=== PATIENT | female | born 2005 | race Caucasian/White ===

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

== ENCOUNTER 2024-06-01 10:34 | Outpatient (REF) | payer MEDICAID, SELFPAY ==
[2024-06-01 11:07] LABS: MANUAL DIFF FLAG NO
[2024-06-01 11:21] LABS: Basophils Percent Auto 0.6 % (0-2); Eosinophils Absolute Auto 0.1 X10*3/uL (0.0-0.4); Eosinophils Percent Auto 1.7 % (0-4); Hematocrit 42.4 % (37.0-47.0); Hemoglobin 13.7 g/dl (12.0-16.0); Imm Gran Abs Auto 0.03 X10*3/uL (0.00-0.03); Imm Gran Pct Auto 0.5 % (0.0-0.4); Lymphocytes Absolute Auto 1.8 X10*3/uL (1.2-4.9); Mean Corpuscular HGB Conc 32.3 g/dl (31.0-35.0); Mean Corpuscular Hemoglobin 29.3 pg (27.0-33.0); Mean Corpuscular Volume 90.6 fL (80.0-98.0); Mean Platelet Volume 11.2 fL (9.4-12.3); Monocytes Absolute Auto 0.5 X10*3/uL (0.1-1.2); Monocytes Percent Auto 7.5 % (2-11); Neutrophils Percent Auto 61.7 % (45-73); Platelet Count 329 X10*3/uL (160-400); Red Blood Count 4.68 X10*6/uL (4.20-5.50); White Blood Count 6.4 X10*3/uL (4.8-10.8)
[2024-06-01 12:39] LABS: Alanine Aminotransferase 18 U/L (0-31); Albumin Level 4.4 g/dL (3.5-5.0); Alkaline Phosphatase 82 U/L (39-117); Anion Gap 8 (12-20); Aspartate Amino Transferase 26 U/L (5-31); Bilirubin Total 0.5 mg/dL (0.0-1.0); Blood Urea Nitrogen 10 mg/dL (9-16); Calcium 9.4 mg/dL (8.4-10.2); Carbon Dioxide 26 mmol/L (22-29); Chloride 110 mmol/L (96-108); Estimated Glomerular Filt Rate > 60; Glucose Random 76 mg/dL (60-115); Potassium 3.9 mmol/L (3.3-5.1); Sodium 140 mmol/L (135-145); Total Protein 7.2 g/dL (6.5-8.0)
--- OUTSIDE RECORDS SUMMARY | 2024-06-01 12:41 | XMS_ITS | Clinical Summary ---
Author Organization [employer] [facility] ity Address [address] [place] [address] Care Team Providers Care Sign Designer Name Role Phone Unavailable Primary Care Provider Unavailabl e Social History Tobacco Use Types Packs/Day Years Used Date Smoking Tobacco: Never Assessed Comments Unknown Sex and Gender Information Value Date Recorded Sex Assigned at Not on file Legal Sex Female 8:57 PM EST Gender Identity Not on file Sexual Orientation Not on file Plan of Treatment Health Maintenance Due Date Last Done Comments Gonorrhea/Chlamydia Screening 2004 Varicella Vaccines (1 of 2 - 13+ 2-dose series) 2017 HPV Vaccines (1 - 3-dose series) 2019 Meningococcal B Vaccine (1 o f 2 - Standard) 2020 Annual Well Child Visit (3-2 1 years old) 03/21/2023 Depression Screening 03/21/2023 HIV Screening 03/21/2023 Hepatitis C Screening 03/21/2023 Social Influencers of Health Screening 03/21/2023 DTaP,Tdap,and Td Vaccines (1 - Tdap) 2023 Hepatitis B Vaccines (1 of 3 - 19+ 3-dose series) 2023 COVID-19 Vaccine ( - 2023-2 5 season) 2023 Influenza Vaccine (Season Ended) 2024 HIB Vaccines Aged Out No longer eligi ble based on patient's age to complete this topic Hepatitis A Vaccines Aged Out No long er eligible based on patient's age to complete this topic IPV Vaccines Aged Out No longer eligi ble based on patient's age to complete this topic MMR Vaccines Aged Out No longer eligi ble based on patient's age to complete this topic Meningococcal ACWY Vaccine Aged Out N o longer eligible based on patient's age to complete this topic Pneumococcal Vaccine: Pediat rics (0 to 5 Years) and At-Risk Patients (6 to 64 Years) Aged Out No longer eligible b ased on patient's age to complete this topic RSV Immunization Patients Un luis 20 months Aged Out No longer eligible b ased on patient's age to complete this topic
--- OUTSIDE RECORDS SUMMARY | 2024-06-01 12:41 | XMS_ITS | Encounter Summary ---
Author Organization [employer] Address [address] [facility] [address] [place] [address] Care Team Providers Care Labels Molder Name Role Phone Gloria Zarate MD Primary Care Provider [phone] Encounter Details Date Type Department Care Team (Latest Contact Info) Description 06/01/2024 Travel Social History Tobacco Use Types Packs/Day Years Used Date Smoking Tobacco: Never Smokeless Tobacco: Never Alcohol Use Standard Drinks/Week Comments Never 0 (1 standard drink = 0.6 oz pur e alcohol) Depression Answer Date Recorded Patient Health Questionnaire-9 Score 0 06/01/2024 Patient Health Questionnaire-9 Score 0 06/01/2024 Last PHQ-9: Questionnaire Data Not on file 0 06/01/2024 Housing Stability Answer Date Recorded What is your housing situation today? I have meena delarosa 06/01/[address] you li ve. Do you have problems with any of the following? None of the above 06/01/2024 Food Insecurity Answer Date Recorded Within the past 12 months, y ou worried that your food would run out before you got money to buy more: Never True 06/01/2024 Within the past 12 months,th e food you bought just didn't last and you didn't have enough money to get more: Never True 09/2024 Transportation Answer Date Recorded In the past 12 months, has l ack of transportation kept you from medical appts, meetings, work or from getting things needed for daily living? No 06/01/2024 Intimate Partner Violence Answer Date R ecorded Within the last year, have y ou been afraid of your partner or ex-partner? 2 06/01/2024 Within the last year, have y ou been humiliated or emotionally abused in other ways by your partner or ex-partner? 2 Within the last year, have y ou been kicked, hit, slapped, or otherwise physically hurt by your partner or ex-partner? 2 06/01/2024 Within the last year, have y ou been raped or forced to have any kind of sexual activity by your partner or ex-partner? 2 06/01/2024 Utilities Answer Date Recorded In the past 12 months, has t he electric, gas, oil or water company threatened to shut off services in your home? No 06/01/2024 Depression Answer Date Recorded Patient Health Questionnaire-2 Score 0 06/01/2024 Internet Access Answer Date Recorded Internet Access Q1 Yes 06/01/2024 Internet Access Q2 Not on file 06/01/2024 Comments Unknown Sex and Gender Information Value Date Recorded Sex Assigned at Female 06/01/2024 9:50 AM EDT Legal Sex Female 2:08 AM EST Gender Identity Female 06/01/2024 9:50 AM EDT Sexual Orientation Don't know 06/01/2024 9: 50 AM EDT documented as of this encounter Plan of Treatment Not on file documented as of this encounter Visit Diagnoses Not on filedocumented in this encounter Additional Health Concerns Assessment Noted Time PHQ-9 Depression Total Score: 0 06/02/19 25 10:02 AM EDT documented as of this encounter Care Teams Labels Molder Relationship Specialty Start Date End Date Gloria Zarate MD [address] [place] [address] PCP - General Family Medicine 06/01/24 documented as of this encounter
--- OUTSIDE RECORDS SUMMARY | 2024-06-01 12:41 | XMS_ITS | Clinical Summary ---
Author Organization [email or web address] [facility] Address [address] [facility] [address] [place] [address] Care Team Providers Care Captain Of Guards Name Role Phone Gloria Zarate MD Primary Care Provider [phone] Allergies No known active allergies Medications benzoyl peroxide (PanOxyl Foaming Wash) 10 % external washIndications :Nodular acne Apply topically 2 times daily. 148 g 3 5 06/02/19 26 Active Clindamycin Phos, Once-Daily, (Clindagel) 1 % gelIndications: Nodular acne Apply 1 Application topically at bedtime. 75 mL 3 5 Active Active Problems No known active problems Encounters Date Type Department Care Team Description 06/01/2024 9:45 AM EDT Office Visit [facility] [address] [place] [phone] Gloria Zarate MD Encounter to establish care (Primary Dx); Nodular acne 06/01/2024 Travel 05/24/2024 Patient Outreach [facility] [address] [place] [phone] Gloria Zarate MD Pre-visit Planning ((Unable to reach for PVP screening, LVM)) 05/07/2024 [address] Risk Score [facility] () Department [address] [id number] Provider, Population Health Generic from Last 3 Months Social History Tobacco Use Types Packs/Day Years Used Date Smoking Tobacco: Never Smokeless Tobacco: Never Tobacco Cessation:Counseling Given: Not Answered Alcohol Use Standard Drinks/Week Comments Never 0 [...] the past 12 months, has t he [employer], gas, oil or water company threatened to [...] Don't know 06/01/2024 9: 50 AM EDT Last Filed Vital Signs Vital Sign Reading Time Taken Comments Blood Pressure 115/64 06/01/2024 10:01 AM EDT Pulse 80 06/01/2024 10:01 AM EDT Temperature 36.3 ??C (97.4 ??F) 06/01/2024 10:01 AM E DT Respiratory Rate 18 06/01/2024 10:01 AM EDT Oxygen Saturation 99% 06/01/2024 10:01 AM EDT Inhaled Oxygen Concentration - - Weight 60.4 kg (133 lb 3.2 oz) 06/01/2024 10:01 AM EDT Height 166.5 cm (5' 5.57 ) 06/01/2024 10:01 AM E DT Body Mass Index 21.78 06/01/2024 10:01 AM EDT Plan of Treatment Health Maintenance Due Date Last Done Comments Chlamydia and Gonorrhea Screening 2004 HIV Screening 2004 Family Planning (PISQ) 2019 Hepatitis C Screening 2022 HPV Vaccines (3 - 3-dose series) 12/05/2022 09/12/2022, 03/26/2021 COVID-19 Vaccine (2023- season) 2023 Influenza Vaccine (#1) 2023 12/31/2022 Alcohol/Substance Use Screening 06/01/2025 06/01/2024 Depression Screening 06/01/2025 06/01/2024, 06/02/19 SDOH Screening 06/01/2025 06/01/2024 Tobacco Screening 06/01/2025 06/01/2024 DTaP/Tdap/Td Vaccines (8 - Td or Tdap) 07/29/2026 07/29/2016, 07/29/2016, 04/04/2008, Additional history exists Zoster Vaccines (1 of 2) 2054 RSV Patients and Patients Aged 60 years or older (1 - 1-dose 75+ series) 2079 Hepatitis B Vaccines Completed 2004, 2004, 2004 HIB Vaccines Completed 09/05/2005, 07/26, 2004 IPV Vaccines Completed 04/04/2008, 09/25, 2004, Additional history exists Hepatitis A Vaccines Completed 12/14/2012, 09/06/19 06 Meningococcal Vaccine Completed 03/26/2021, 017 Pneumococcal Vaccine: Pediatrics (0 to 5 Years) and At-Risk Patients (6 to 49) Years) Aged Out No longer eligible based on patient's age to complete this topic RSV under 20 months Aged Out No longe r eligible based on patient's age to complete this topic Rotavirus Vaccines Aged Out No longer eligible based on patient's age to complete this topic Procedures Procedure Name Priority Date/Time Associated Diagnosis Comments CBC WITH AUTO DIFFERENTIAL Routine 06/01/2024 10:37 AM EDT Encounter to establish care COMPREHENSIVE METABOLIC PANEL Routine 06/01/2024 10:37 AM EDT Encounter to establish care from Last 3 Months Results * (ABNORMAL) CBC auto differential (06/01/2024 10:37 AM EDT) White Blood Count 6.4 4.8 - 10.8 X10*3/uL [facility] Red Blood Count 4.68 4.20 - 5.50 X10*6/uL [facility] Hemoglobin 13.7 12.0 - 16.0 g/dl [facility] Hematocrit 42.4 37.0 - 47.0 % [facility] Mean Corpuscular Volume 90.6 80.0 - 98.0 fL [facility] Mean Corpuscular Hemoglobin 29.3 27.0 - 33.0 pg [facility] Mean Corpuscular HGB Conc 32.3 31.0 - 35.0 g/dl [facility] Red Cell Distribution Width 13.0 11.0 - 16.0 % [facility] Platelet Count 329 160 - 400 X10*3/uL [facility] Mean Platelet Volume 11.2 9.4 - 12.3 fL [facility] Neutrophils Percent Auto 61.7 45 - 73 % [facility] Imm Gran Pct Auto 0.5(H) 0.0 - 0.4 % [facility] Lymphocytes Percent Auto 28.0 20 - 40 % [facility] Monocytes Percent Auto 7.5 2 - 11 % [facility] Eosinophils Percent Auto 1.7 0 - 4 % [facility] Basophils Percent Auto 0.6 0 - 2 % [facility] NRBC Pct Auto 0.0 0.0 - 0.2 /100WBC [facility] Neutrophils Absolute Auto 4.0 2.0 - 8.3 x10*3/uL [facility] Imm Gran Abs Auto 0.03 0.00 - 0.03 X10*3/uL [facility] Lymphocytes Absolute Auto 1.8 1.2 - 4.9 X10*3/uL [facility] Monocytes Absolute Auto 0.5 0.1 - 1.2 X10*3/uL [facility] Eosinophils Absolute Auto 0.1 0.0 - 0.4 X10*3/uL [facility] Basophils Absolute Auto 0.0 0.0 - 0.2 X10*3/uL [facility] NRBC Abs Auto 0.000 0.0 - 0.012 X10*3/uL [facility] Blood Venous blood specimen / Unknown 06/01/2024 10:37 AM EDT 06/01/2024 11:02 AM EDT us Gloria Zarate MD LAB BLOOD ORDERABLES Final Res ult [facility] [address] [place] [address] [phone] * (ABNORMAL) Comprehensive Metabolic Panel (06/01/2024 10:37 AM EDT) Sodium 140 135 - 145 mmol/L [facility] Potassium 3.9 3.3 - 5.1 mmol/L [facility] Chloride 110(H) 96 - 108 mmol/L [facility] Carbon Dioxide 26 22 - 29 mmol/L [facility] Anion Gap 8(L) 12 - 20 [facility] Urea Nitrogen (BUN) 10 9 - 16 mg/dL [facility] Creatinine, Serum 0.73 0.5 - 1.4 mg/dL [facility] Estimated Glomerular Filt Rate >60 [facility] Comment:Chronic Kidney Disea se: Estimated GFR < 60 mL/min/[id number] Kidney Disease: Estimated GFR < 15 mL/min/1.73m2 Glucose 76 60 - 115 mg/dL [facility] Calcium 9.4 8.4 - 10.2 mg/dL [facility] Bilirubin, Total 0.5 0.0 - 1.0 mg/dL [facility] Aspartate Amino Transferase 26 5 - 31 U/L [facility] Alanine Aminotransferase 18 0 - 31 U/L [facility] Total Protein 7.2 6.5 - 8.0 g/dL [facility] Albumin Level 4.4 3.5 - 5.0 g/dL [facility] Alkaline Phosphatase 82 39 - 117 U/L [facility] Blood Venous blood specimen / Unknown 06/01/2024 10:37 AM EDT 06/01/2024 11:02 AM EDT us Gloria Zarate MD LAB BLOOD ORDERABLES Final Res ult [facility] [address] [place] [address] [phone] from Last 3 Months Insurance [facility] C3 Care Teams Captain Of Guards Relationship Specialty Start Date End Date Gloria Zarate MD [address] [place] [address] PCP - General Family Medicine 06/01/24
--- OUTSIDE RECORDS SUMMARY | 2024-06-01 12:41 | XMS_ITS | Encounter Summary ---
Author Organization [employer] Address [address] [facility] [address] [place] [address] Care Team Providers Care Territory Account Representative Name Role Phone Gloria Zarate MD Primary Care Provider [phone] Reason for Visit * Reason Comments Establish Care Encounter Details Date Type Department Care Team ([facility] st Contact Info) Description 06/01/2024 9:45 AM EDT Office Visit [facility] [address], [place] [phone] Gloria Zarate MD [address] [place], [place] [phone] Encounter to establish care (Primary Dx); Nodular acne Social History Tobacco Use Types Packs/Day Years [...] AM EDT documented as of this encounter Last Filed Vital Signs Vital Sign Reading [...] Mass Index 21.78 06/01/2024 10:01 AM EDT documented in this encounter Plan of Treatment Not on file documented as of this encounter Procedures Procedure Name Priority Date/Time Associated Diagnosis Comments CBC WITH AUTO DIFFERENTIAL Routine 06/01/2024 10:37 AM EDT Encounter to establish care COMPREHENSIVE METABOLIC PANEL Routine 06/01/2024 10:37 AM EDT Encounter to establish care documented in this encounter Results * (ABNORMAL) CBC auto differential (06/01/2024 10:37 AM EDT) Pathologist [facility] White Blood Count 6.4 4.8 - 10.8 X10*3/uL [facility] Red Blood Count 4.68 4.20 - 5.50 X10*6/uL [facility] Hemoglobin 13.7 12.0 - 16.0 g/dl [facility] Hematocrit 42.4 37.0 - 47.0 % [facility] Mean Corpuscular Volume 90.6 80.0 - 98.0 fL [facility] Mean Corpuscular Hemoglobin 29.3 27.0 - 33.0 pg [facility] Mean Corpuscular HGB Conc 32.3 31.0 - 35.0 g/dl [facility] Red Cell Distribution Width 13.0 11.0 - 16.0 % [facility] Platelet Count 329 160 - 400 X10*3/uL [facility] Mean Platelet Volume 11.2 9.4 - 12.3 fL [facility] Neutrophils Percent Auto 61.7 45 - 73 % [facility] Imm Gran Pct Auto 0.5(H) 0.0 - 0.4 % [facility] Lymphocytes Percent Auto 28.0 20 - 40 % [facility] Monocytes Percent Auto 7.5 2 - 11 % [facility] Eosinophils Percent Auto 1.7 0 - 4 % [facility] Basophils Percent Auto 0.6 0 - 2 % [facility] NRBC Pct Auto 0.0 0.0 - 0.2 /100WBC [facility] Neutrophils Absolute Auto 4.0 2.0 - 8.3 x10*3/uL [facility] Imm Gran Abs Auto 0.03 0.00 - 0.03 X10*3/uL [facility] Lymphocytes Absolute Auto 1.8 1.2 - 4.9 X10*3/uL [facility] Monocytes Absolute Auto 0.5 0.1 - 1.2 X10*3/uL [facility] Eosinophils Absolute Auto 0.1 0.0 - 0.4 X10*3/uL [facility] Basophils Absolute Auto 0.0 0.0 - 0.2 X10*3/uL [facility] NRBC Abs Auto 0.000 0.0 - 0.012 X10*3/uL [facility] Blood Venous blood specimen / Unknown 06/01/2024 10:37 AM EDT 06/01/2024 11:02 AM EDT us Gloria Zarate MD LAB BLOOD ORDERABLES Final Res ult [facility] [address] [place] [address] [phone] * (ABNORMAL) Comprehensive Metabolic Panel (06/01/2024 10:37 AM EDT) Sodium 140 135 - 145 mmol/L [facility] Potassium 3.9 3.3 - 5.1 mmol/L [facility] Chloride 110(H) 96 - 108 mmol/L [facility] Carbon Dioxide 26 22 - 29 mmol/L [facility] Anion Gap 8(L) 12 - 20 [facility] Urea Nitrogen (BUN) 10 9 - 16 mg/dL [facility] Creatinine, Serum 0.73 0.5 - 1.4 mg/dL [facility] Estimated Glomerular Filt Rate >60 [facility] Comment:Chronic Kidney Disea se: Estimated GFR < 60 mL/min/[id number] Kidney Disease: Estimated GFR < 15 mL/min/1.73m2 Glucose 76 60 - 115 mg/dL [facility] Calcium 9.4 8.4 - 10.2 mg/dL [facility] Bilirubin, Total 0.5 0.0 - 1.0 mg/dL [facility] Aspartate Amino Transferase 26 5 - 31 U/L [facility] Alanine Aminotransferase 18 0 - 31 U/L [facility] Total Protein 7.2 6.5 - 8.0 g/dL [facility] Albumin Level 4.4 3.5 - 5.0 g/dL [facility] Alkaline Phosphatase 82 39 - 117 U/L [facility] Blood Venous blood specimen / Unknown 06/01/2024 10:37 AM EDT 06/01/2024 11:02 AM EDT us Gloria Zarate MD LAB BLOOD ORDERABLES Final Res ult [facility] [address] [place] [address] [phone] documented in this encounter Visit Diagnoses Diagnosis Encounter to establish care- Primary Nodular acne documented in this encounter Additional Health Concerns Assessment Noted Time PHQ-9 Depression Total Score: 0 06/02/19 25 10:02 AM EDT documented as of this encounter Care Teams Territory Account Representative Relationship Specialty Start Date End Date Gloria Zarate MD [address] [place] [address] PCP - General Family Medicine 06/01/24 documented as of this encounter
== END 2024-06-01 10:35 | disposition home or self-care (01) ==
LOC: HO.HHCL 10:34
PROVIDERS: Visit Provider General Practice
DX: Z76.89 Persons encountering health services in other specified circumstances (principal)
CPT/HCPCS: 36415; 80053; 85025

== ENCOUNTER 2024-08-30 17:58 | Outpatient (REF) | payer MEDICAID, SELFPAY ==
--- OUTSIDE RECORDS SUMMARY | 2024-08-30 11:20 | XMS_ITS | Encounter Summary ---
Author Organization [employer] Address [address] [facility] 7[address] [place] [address] Care Team Providers Care Hotel Operation Manager Name Role Phone Gloria Zarate MD Primary Care Provider [phone] Encounter Details Date Type Department Care Team (Late st Contact Info) Description 08/30/2024 11:20 AM EDT Office Visit [facility] [address] [place], [place] [phone] Millie Luther NP [address] [place], [place] [phone] UTI symptoms (Primary Dx); Vaginal discharge Social History Tobacco Use Types Packs/Day Years [...] Sign Reading Time Taken Comments Blood Pressure 115/68 08/30/2024 11:40 AM EDT Pulse 83 08/30/2024 11:40 AM EDT Temperature 37.1 C (98.7 F) 08/30/2024 11:40 AM EDT Respiratory Rate 18 08/30/2024 11:40 AM EDT Oxygen Saturation 99% 08/30/2024 11:40 AM EDT Inhaled Oxygen Concentration - - Weight 61.7 kg (136 lb) 08/30/2024 11:40 AM EDT Height - - Body Mass Index 22.24 06/25/2024 3:08 PM EDT documented in this encounter Progress Notes * Millie Luther NP - 08/30/2024 11:20 AM EDT SUBJECTIVE: Yarimar Singh-Arboleda is a 19 y.o. female who presents to the [facility] [place] for a sick visit. Denies recent illness, injury, or hospitalization. Here with boyfriend HPI Complains of vaginal itching, burning with urination x4 days. Also reports thick white discharge onset around the same time. Sexually active with male partner. Declines Sti testing. Denies fever, chills, blood in urine. Review of Systems Constitutional: Negative for chills and fever. Genitourinary: Positive for dysuria, frequency, urgency and vaginal discharge. Negative for flank pain and vaginal bleeding. All other systems reviewed and are negative. OBJECTIVE: Visit Vitals BP 115/68 (BP Location: Left arm, Patient Position: Sitting, BP Cuff Size: Adult) Pulse 83 Temp 98.7 ??F (37.1 ??C) (Oral) Resp 18 Wt 136 lb (61.7 kg) SpO2 99% BMI 22.24 kg/m?? Smoking Status Never BSA 1.69 m?? Office Visit on 08/30/2024 Component Date Value Ref Range Status Color, UA 08/30/2024 Yellow Final Clarity, UA 08/30/2024 Clear Final Glucose, UA 08/30/2024 Negative Final Bilirubin, UA 08/30/2024 Negative Final Ketones, UA 08/30/2024 Negative Final Spec Grav, UA 08/30/2024 1.020 Final Blood, UA 08/30/2024 Negative Negative, None Detected Final pH, UA 08/30/2024 6.5 Final Protein, UA 08/30/2024 Negative Final Urobilinogen, UA 08/30/2024 0.2 Final Leukocytes, UA 08/30/2024 Many (A) Negative, Rare, Trace Final Large Nitrite, UA 08/30/2024 Negative Negative, None Detected Final Appearance, UA 08/30/2024 OK Final Problem List[1] Physical Exam Vitals reviewed. Constitutional: General: She is not in acute distress. Appearance: Normal appearance. She is not ill-appearing. HENT: Head: Normocephalic and atraumatic. Right Ear: External ear normal. Left Ear: External ear normal. Nose: Nose normal. Eyes: General: No scleral icterus. Extraocular Movements: Extraocular movements intact. Cardiovascular: Rate and Rhythm: Normal rate and regular rhythm. Pulses: Normal pulses. Heart sounds: Normal heart sounds. Pulmonary: Effort: Pulmonary effort is normal. No respiratory distress. Breath sounds: Normal breath sounds. Abdominal: Tenderness: There is no right CVA tenderness or left CVA tenderness. Musculoskeletal: General: Normal range of motion. Cervical back: Normal range of motion. Neurological: General: No focal deficit present. Mental Status: She is alert and oriented to person, place, and time. Gait: Gait normal. Psychiatric: Mood and Affect: Mood normal. Behavior: Behavior normal. Assessment/Plan Diagnoses and all orders for this visit: UTI symptoms Comments: -POCT urinalysis negative for nitrites; moderate amount of leukocytes -urine sent out for culture -Discussed symptomatic management while awaiting culture results: which includes increase water intake, and pure cranberry juice consumption, take Tylenol for pain -patient re-educated on feminine cleansing techniques -Return and emergency precautions reviewed -Will call with results Orders: - POCT urinalysis dipstick manually resulted - Culture, Urine, Routine; Future Vaginal discharge Comments: -symptom description consistent with yeast infection -vaginal swab obtained for confirmation -rx'd fluconazole -will treat according to infection type -if BV test positive prefers topical treatment -feminine hygiene reviewed: avoid scented/ perfumed products, wash vulva with water only -will call with results Orders: - Bacterial Vaginosis, Yeast and Trich; Future - fluconazole (Diflucan) 150 MG tablet; Take 1 tablet (150 mg) by mouth 1 (one) time for 1 dose. Follow-up: routine care/per recall with PCP or sooner as needed Pashto Translation: Provided by [facility] staff member TODD Brown [1] Patient Active Problem List Diagnosis Acne vulgaris documented in this encounter Plan of Treatment Scheduled Orders Name Type Priority Associated Diagnoses Orde r Schedule Culture, Urine, Routine Microbiology Routine UTI symptoms Expected: 08/30/2024 (Approximate), Expires: 08/30/2025 Bacterial Vaginosis, Yeast and Trich Microbiology Routine Vaginal discharge Expected: 08/30/2024 (Approximate), Expires: 08/30/2025 documented as of this encounter Procedures Procedure Name Priority Date/Time Associated Diagnosis Comments POCT URINALYSIS DIPSTICK Routine 08/30/2024 11:48 AM EDT UTI symptoms documented in this encounter Results * (ABNORMAL) POCT urinalysis dipstick manually resulted (08/30/2024 11:48 AM EDT) Color, UA Yellow Clarity, UA Clear Glucose, UA Negative Bilirubin, UA Negative Ketones, UA Negative Spec Grav, UA 1.020 Blood, UA Negative Negative, None Detected pH, UA 6.5 Protein, UA Negative Urobilinogen, UA 0.2 Leukocytes, UA Many(A) Negative, Rare, Trace Comment:Large Nitrite, UA Negative Negative, None Detected Appearance, UA OK Urine 08/30/2024 11:4 8 AM EDT [facility] HEAT TREATER HELPER POINT OF CARE TEST ENTER/EDIT O RDERABLES Final Result documented in this encounter Visit Diagnoses Diagnosis UTI symptoms- Primary Vaginal discharge Leukorrhea, not specified as infective documented in this encounter Additional Health Concerns Assessment Noted Time PHQ-9 Depression Total Score: 0 06/02/19 25 10:02 AM EDT documented as of this encounter Care Teams Hotel Operation Manager Relationship Specialty Start Date End Date Gloria Zarate MD [address] [place] [phone] PCP - General Family Medicine 06/01/24 documented as of this encounter
--- OUTSIDE RECORDS SUMMARY | 2024-08-30 17:59 | XMS_ITS | Clinical Summary ---
Author Organization [facility] [employer] [facility] ity Address [address] [place] [address] Care Team Providers Care Sheet Rocker Name Role Phone Unavailable Primary Care Provider [...] - 19+ 3-dose series) 2023 COVID-19 Vaccine (1 - 2023-2 5 season) 2023 Influenza Vaccine (#1) 2024 HIB Vaccines Aged Out No longer [...] 5 Years) and At-Risk Patients (6 to 49 Years) Aged Out No longer eligible b ased on patient's age to complete this topic RSV Immunization Patients Un luis 20 months Aged Out No longer eligible b ased on patient's age to complete this topic
[2024-08-31 11:05] LABS: Bacterial Vaginosis PCR NEGATIVE (Negative); Candida Group PCR DETECTED (Not Detect); Candida glab krusei PCR NOT DETECTED (Not Detect); Trichomonas vaginalis PCR NOT DETECTED (Not Detect)
== END 2024-08-30 17:59 | disposition home or self-care (01) ==
LOC: HO.HHCLNP 17:58
PROVIDERS: Visit Provider Nurse Practitioner
DX: N89.8 Other specified noninflammatory disorders of vagina (principal); R39.9 Unspecified symptoms and signs involving the genitourinary system
CPT/HCPCS: 81515; 87086; 87088

== ENCOUNTER 2024-10-18 12:22 | Outpatient (REF) | payer MEDICAID, SELFPAY ==
--- OUTSIDE RECORDS SUMMARY | 2024-10-18 17:00 | XMS_ITS | Encounter Summary ---
Author Organization [employer] Address [address] [facility] 7t [place] [address] Care Team Providers Care Race Board Attendant Name Role Phone Gloria Zarate MD Primary Care Provider [phone] Reason for Visit * Reason Comments Vaginal Itching Encounter Details Date Type Department Care Team ([facility] st Contact Info) Description 10/18/2024 5:00 PM EDT Office Visit [facility] [address] [place] [address] Abnormal finding on urinalysis (Primary Dx); Vaginal itching Social History Tobacco Use Types Packs/Day Years [...] Sign Reading Time Taken Comments Blood Pressure 121/72 10/18/2024 5:06 PM EDT Pulse 89 10/18/2024 5:06 PM EDT Temperature 36.6 C (97.9 F) 10/18/2024 5:06 PM EDT Respiratory Rate 16 10/18/2024 5:06 PM EDT Oxygen Saturation 99% 10/18/2024 5:06 PM EDT Inhaled Oxygen Concentration - - Weight 60.8 kg (134 lb) 10/18/2024 5:06 PM EDT Height - - Body Mass Index 21.91 06/25/2024 3:08 PM EDT documented in this encounter Plan of Treatment Upcoming Encounters Date Type Department Care Team (Late st Contact Info) Description 12/03/2024 9:00 AM EDT Office Visit [facility] [address] [place] [address] Inocente Geiger MD [address] [place] [address] Scheduled Orders Name Type Priority Associated Diagnoses Orde r Schedule Chlamydia/N. Gonorrhoeae RNA, TMA, Urogenitial Microbiology Routine Vaginal itching Ordered: 10/18/2024 Bacterial Vaginosis Microbiology Routine Vaginal itching Ordered: 10/18/2024 Culture, Urine, Routine Microbiology Routine Abnormal finding on urinalysis Expected: 10/18/2024 (Approximate), Expires: 10/18/2025 documented as of this encounter Procedures Procedure Name Priority Date/Time Associated Diagnosis Comments POCT URINALYSIS DIPSTICK Routine 10/18/2024 5:19 PM EDT Vaginal itching documented in this encounter Results * (ABNORMAL) POCT urinalysis dipstick manually resulted (10/18/2024 5:19 PM EDT) Color, UA Yellow Clarity, UA Clear Glucose, UA Negative Bilirubin, UA Negative Ketones, UA Positive Comment:trace Spec Grav, UA 1.030 Blood, UA Positive(A) Negative, None Detected Comment:Trace pH, UA 5.5 Protein, UA Trace Urobilinogen, UA 0.2 Leukocytes, UA Few 15(A) Negative, Rare, Trace Nitrite, UA Negative Negative, None Detected Appearance, UA OK Urine 10/18/2024 5:19 PM EDT Millie Appram PACKAGING TECH POINT OF CARE TEST ENTER/EDIT O RDERABLES Final Result documented in this encounter Visit Diagnoses Diagnosis Abnormal finding on urinalysis- Primary Vaginal itching Pruritus of genital organs documented in this encounter Additional Health Concerns Assessment Noted Time PHQ-9 Depression Total Score: 0 06/02/19 10:02 AM EDT documented as of this encounter Care Teams Race Board Attendant Relationship Specialty Start Date End Date Gloria Zarate MD [address] [place] [address] PCP - General Family Medicine 06/01/24 documented as of this encounter
--- OUTSIDE RECORDS SUMMARY | 2024-10-19 13:02 | XMS_ITS | Clinical Summary ---
Author Organization [employer] Address [address] [facility] 7t [place] [address] Care Team Providers Care Instant Potato Processing Supervisor Name Role Phone Gloria Zarate MD Primary Care Provider [phone] Allergies No known active allergies Medications minocycline 100 MG capsuleIndicati ons:Cystic acne vulgaris Take 1 capsule (100 mg) by mouth 2 times daily. 60 capsule 2 5 Active tretinoin (Retin-A) 0.025 % creamIndication s:Cystic acne vulgaris Apply topically at bedtime. 45 g 2 5 06/26/19 26 Active benzoyl peroxide (PanOxyl Foaming Wash) 10 % external washIndications :Cystic acne vulgaris Apply topically Once per day. 227 g 1 5 06/26/19 26 Active trimethoprim-po lymyxin b (Polytrim) ophthalmic solution Administer 1-2 drops into affected eye(s) 4 times daily for 10 days. 10 mL 5 09/25/19 25 Active Problems Problem Noted Date Diagnosed Date Acne vulgaris 06/02/2024 Encounters Date Type Department Care Team Description 10/18/2024 5:00 PM EDT Office Visit [facility] [address] [place] [phone] Abnormal finding on urinalysis (Primary Dx); Vaginal itching 10/18/2024 Travel 09/14/2024 3:20 PM EDT Office Visit [facility] [address] [place] [phone] Name, MD Caesar Hordeolum externum of right upper eyelid (Primary Dx) 09/14/2024 Travel 09/01/2024 Results Follow-Up [facility] [address] [facility] [place] [address] Millie Luther NP Bacterial Vaginosis 08/30/2024 11:20 AM EDT Office Visit [facility] [address] [facility] [place] [address] Millie Luther NP UTI symptoms (Primary Dx); Vaginal discharge 08/30/2024 Orders Only [facility] [address] [facility] [place] [address] Millie Luther NP 08/30/2024 Travel from Last 3 Months Social History Tobacco [...] Q2 Not on file 06/01/2024 Comments Unknown Intention Date Recorded No desire to become (finding) 0 06/01/2024 Sex and Gender Information Value Date Recorded [...] (134 lb) 10/18/2024 5:06 PM EDT Height 166.5 cm (5' 5.57 ) 06/25/2024 3:08 PM ED T Body Mass Index 21.91 06/25/2024 3:08 PM EDT Plan of Treatment Upcoming Encounters Date Type Department Care Team (Late st Contact Info) Description 12/03/2024 9:00 AM EDT Office Visit [facility] [address] [place], [place] [phone] Inocente Geiger MD [address] [place] [address] Health Maintenance Due Date Last Done Comments Chlamydia and Gonorrhea Screening 2004 HIV Screening 2004 Disability Screening 2004 Meningococcal B Vaccine (1 of 2 - Standard) 2020 Hepatitis C Screening 2022 HPV Vaccines (3 - 3-dose series) 12/05/2022 09/12/2022, 09/12/2022, 03/26/2021, Additional history exists COVID-19 Vaccine ( - season) 2023 Influenza Vaccine (#1) 2024 12/31/2022 Alcohol/Substance Use Screening 06/01/2025 06/01/2024 Depression Screening 06/01/2025 06/01/2024, 06/02/19 SDOH Screening 06/01/2025 06/01/2024 Family Planning (PISQ) 06/02/2025 06/02/2024 Tobacco Screening 10/18/2025 10/18/2024 DTaP/Tdap/Td Vaccines (7 - Td or Tdap) 07/29/2026 07/29/2016, 07/29/2016, 07/29/2016, Additional history exists Zoster Vaccines (1 of 2) 2054 RSV Patients and Patients Aged 60 years or older (1 - 1-dose 75+ series) 2079 Hepatitis B Vaccines Completed 2004, 2004, 2004 HIB Vaccines Completed 09/05/2005, 07/26, 2004 IPV Vaccines Completed 04/04/2008, 09/25, 2004, Additional history exists Hepatitis A Vaccines Completed 12/14/2012, 09/06/19 06 Meningococcal Vaccine Completed 03/26/2021 , 03/26/2021, 07/29/2016, Additional history exists Pneumococcal Vaccine: Pediatrics (0 to 5 Years) and At-Risk Patients (6 to 49) Years Aged Out No longer eligible based on [...] Routine 10/18/2024 5:19 PM EDT Vaginal itching BACTERIAL VAGINOSIS PANEL Routine 08/30/2024 12:01 PM EDT POCT URINALYSIS DIPSTICK Routine 08/30/2024 11:48 AM EDT UTI symptoms CULTURE, URINE, ROUTINE Routine 08/30/2024 12:00 AM EDT UTI symptoms from Last 3 Months Results * (ABNORMAL) POCT urinalysis dipstick manually resulted (10/18/2024 5:19 PM EDT) Only the most recent of2 resultswithin the time period is included. Color, UA Yellow Clarity, UA Clear Glucose, UA Negative Bilirubin, UA Negative Ketones, UA Positive Comment:trace Spec Grav, UA 1.030 Blood, UA Positive(A) Negative, None Detected Comment:Trace pH, UA 5.5 Protein, UA Trace Urobilinogen, UA 0.2 Leukocytes, UA Few 15(A) Negative, Rare, Trace Nitrite, UA Negative Negative, None Detected Appearance, UA OK Urine 10/18/2024 5:19 PM EDT Millie Luther NP POINT OF CARE TEST ENTER/EDIT O RDERABLES Final Result * (ABNORMAL) Bacterial Vaginosis (08/30/2024 12:01 PM EDT) TRICHOMONAS VAGINALIS DETECTION BY PCR NOT DETECTED Not Detect [facility] BACTERIAL VAGINOSIS DETECTION BY PCR NEGATIVE Negative [facility] Comment:The BV organism targ ets of the Xpert Xpress MVP test can becommensal in women; Xpert Xpress MVP positive results forbacterial vaginosis should be considered in conjunction withother clinical and patient information to determine thedisease status. Organisms that are not detected by the XpertXpress MVP test have also been reported to be associatedwith BV and aerobic vaginitis.The Xpert Xpress MVP test performance has not been evaluatedin patients under the age of 14. CLARICE GROUP DETECTION BY PCR DETECTED(A) Not Detect [facility] Clarice glab krusei PCR NOT DETECTED Not Detect [facility] 08/30/2024 12:0 1 PM EDT 08/30/2024 6:03 PM EDT Millie Luther SPACE OPERATIONS OFFICER LAB MICROBIOLOGY - GENERAL ORDE RABJUNIOR Final Result Performing Organization Address [facility]/ZIP Co de Phone Number [facility] [address] [place] [phone] * Culture, Urine, Routine (08/30/2024 12:00 AM EDT) Urine Urine specimen obtained by clean catch procedure / Unknown 08/30/2024 08/30/2024 Comment:UACC Narrative [facility] - 09/03/2024 2:12 PM EDT Clarice albicans Quant 10,000 to 50,000 cfu/mL Specimen Source: Urine clean catch Millie Ann SPACE OPERATIONS OFFICER LAB MICROBIOLOGY - GENERAL ORDE VICENTE Final Result Performing Organization Address [facility] Co de Phone Number [facility] [address] [place] [phone] from Last 3 Months Insurance [facility] C3 Care Teams Instant Potato Processing Supervisor Relationship Specialty Start Date End Date Gloria Zarate MD [address] [place] [phone] PCP - General Family Medicine 06/01/24
--- OUTSIDE RECORDS SUMMARY | 2024-10-19 13:02 | XMS_ITS | Clinical Summary ---
Author Organization [employer] [facility] ity Address [address] [place] [address] Care Team Providers Care Implementation Consultant Name Role Phone Unavailable Primary Care Provider [...] Child Visit (3-2 1 years old) 03/21/2023 HIV Screening 03/21/2023 Hepatitis C Screening 03/21/2023 Social Influencers of Health Screening 03/21/2023 DTaP,Tdap,and Td Vaccines (1 - Tdap) 2023 Hepatitis B Vaccines (1 of 3 - 19+ 3-dose series) 2023 COVID-19 Vaccine (1 - 2023-2 5 season) 2023 Depression Screening 02/25/2024 Influenza Vaccine (#1) 2024 HIB Vaccines Aged [...]
--- OUTSIDE RECORDS SUMMARY | 2024-10-19 13:02 | XMS_ITS | Encounter Summary ---
Author Organization [employer] Address [address] [facility] 7t [place] [address] Care Team Providers Care Sales Superintendent Name Role Phone Gloria Zarate MD Primary Care Provider [phone] Encounter Details Date Type Department Care Team (Latest Contact Info) Description 10/18/2024 Travel Social History Tobacco Use Types Packs/Day [...] as of this encounter Plan of Treatment Upcoming Encounters Date Type Department Care Team (Late st Contact Info) Description 12/03/2024 9:00 AM EDT Office Visit [facility] [address] [place] [address] Inocente Geiger MD [address] [place] [address] documented as of this encounter Visit Diagnoses Not on filedocumented in this encounter Additional Health Concerns Assessment Noted Time PHQ-9 Depression Total Score: 0 06/02/19 10:02 AM EDT documented as of this encounter Care Teams Sales Superintendent Relationship Specialty Start Date End Date Gloria Zarate MD [address] [place] [address] PCP - General Family Medicine 06/01/24 documented as of this encounter
[2024-10-19 14:51] LABS: Bacterial Vaginosis PCR POSITIVE (Negative); Candida Group PCR DETECTED (Not Detect); Candida glab krusei PCR NOT DETECTED (Not Detect); Trichomonas vaginalis PCR NOT DETECTED (Not Detect)
[2024-10-19 15:22] LABS: CT PCR NOT DETECTED (Not Detect.); NG PCR NOT DETECTED (Not Detect.)
== END 2024-10-18 12:23 | disposition home or self-care (01) ==
LOC: HO.HHCLNP 12:22
PROVIDERS: Visit Provider Nurse Practitioner
DX: Z11.3 Encounter for screening for infections with a predominantly sexual mode of transmission (principal); Z11.8 Encounter for screening for other infectious and parasitic diseases; N89.8 Other specified noninflammatory disorders of vagina; R82.90 Unspecified abnormal findings in urine
CPT/HCPCS: 81515; 87086; 87088; 87491; 87591

== ENCOUNTER 2025-02-07 10:00 | Emergency (ER) | payer MEDICAID, SELFPAY ==
[2025-02-07 10:35] VITALS: BP 108/59; PULSE 92; RESP 16; TEMP 36.6; O2SAT 99; BMI 22.6
--- NOTE | 2025-02-07 10:35 | ED_ITS ---
HPI - General Adult General Chief complaint: Upper Respiratory Symptoms Stated complaint: Headache, bodyaches, nasal congestion Time Seen by Provider: 02/07/25 11:41 Source: patient, old records reviewed and freelance court stenographer Mode of arrival: ambulatory Limitations: no limitations History of Present Illness ED Provider: MYRNA VERGARA narrative: 19 yo female no PMH no prior covid vaccines here with c/o URI symptoms, headaches, body aches, sore throat x 3 days. She has no chest pain or trouble breathing. She denies any recent travel or procedures. She states she has viral syndrome MD complaint: Viral syndrome Onset (ago): day(s) (3) Location: head, face, mouth and chest Radiation: non-radiation Severity: mild Quality: aching Pain Consistency: constant Relieving factors: none Exacerbating factors: none Associated symptoms: cough, fever/chills and loss of appetite Treatments prior to arrival: none Related Data Previous Rx's ?Medication ?Instructions ?Recorded ibuprofen 600 mg tablet 600 mg PO Q6H PRN pain #30 t abs 02/07/25 ondansetron 4 mg disintegrating 4 mg PO Q8H PRN nausea and 02/07/25 tablet vomiting #20 tabs Allergies Allergy/AdvReac Type Severity Reaction Status Date / Time No Known Allergies Allergy Verified 02/07/25 10:36 Review of Systems Review of Systems: Yes all other systems are reviewed and are negative [facility] Past Medical History Attestation statement: The following information was validated with the patient. Source: old records reviewed Medical History No pertinent past medical history Social History Social History (Updated 02/07/25 @ 12:20 by Andra Collier DO) Household Members: Family Physical Exam ED Vital Signs: Vital Signs - 24 hr 02/07/25 10:35 02/07/25 11:47 02/07/25 11:52 Temperature 98 F 98.6 F 98.6 F Pulse Rate 92 102 H 102 H Respiratory Rate 16 8 L 8 L Blood Pressure 108/59 L 108/63 108/63 Pulse Oximetry 99 100 100 Oxygen Delivery Method Room Air Room Air Room Air BMI result Body Mass Index 22.6 Appearance: Alert. Oriented X3. No acute distress. Eyes: Pupils equal, round and reactive to light. ENT: Pharynx normal. Normal TM bilaterally Neck: Normal inspection. Neck supple. CVS: Normal heart rate and rhythm. Pulses normal. Respiratory: No respiratory distress. Breath sounds normal. Abdomen: Soft and nontender. Skin: Skin warm and dry. Normal skin color. Normal skin turgor. Extremities: No lower extremity edema. No calf ttp Neuro: Oriented X 3. No motor deficit. No sensory deficit. Course Course Course Narrative: Rapid medical examination performed in triage by Lynn Dumont PA-C: Patient is a 19 year old assigned female at presenting to the emergency department with a headache and nasal congestion. Detailed physical exam and review of systems are deferred to the transitional studies instructor. Swabs ordered. Patient placed back in the waiting room pending room availability and results. Medical Decision Making Medical Decision Making [facility] Narrative: Is a healthy 19-year-old female with viral-like illness for 3 days she has no concerning features such as chest pain or trouble breathing. She is well hydrated. She is not confused. She has normal vital signs and she is not hyp oxic. At this time her lungs are clear do not suspect pneumonia. She has no signs of strep throat on exam. I am going to obtain a viral panel and reassess. Differential Diagnosis Differential Diagnoses: The differential diagnosis associated with the presentation includes Flu, COVID Admission/Observation Consideration of admission/observation: Escalation of care including admission/observation considered Well hydrated not toxic not hypoxic stable for DC Lab Data [facility] Lab Attestation statement: I reviewed the patient's lab results. Labs: Lab Results 02/07/25 Range/Units 10:50 Influenza Type A (PCR) NEGATIVE (Negative) Influenza Type B (PCR) NEGATIVE (Negative) RSV RNA Qual (PCR) NEGATIVE (Negative) SARS-CoV-2 RNA (RT-PCR) POSITIVE A (Negative) External Record Review External record reviewed: Outpatient record Prescription Management I considered prescription management with: Antiviral Discharge Plan Discharge Clinical Impression: COVID-19 Patient Disposition: Home, Self-Care Instructions: COVID-19 (Coronavirus Disease 2019) (ED) Additional Instructions: return for unable to eat or drink, severe chest pains, you are so short of breath you cannot walk to your bathroom rest and stay hydrated alternate tylenol and motrin for symptoms. Prescriptions: New ibuprofen 600 mg tablet 600 mg PO Q6H PRN (Reason: pain) Qty: 30 0RF ondansetron 4 mg tablet,disintegrating 4 mg PO Q8H PRN (Reason: nausea and vomiting) Qty: 20 0RF Stand Alone Forms: Work/School Release Interventions: ED Discharge Assessment Last Done: 02/07/25 11:52 Discharge Date/Time: 02/07/25 11:52 Print Language: Yemeni
[2025-02-07 11:37] LABS: Resp Syncy Virus RNA Qual PCR NEGATIVE (Negative); SARS COV2 PCR INHOUSE POSITIVE (Negative)
[2025-02-07 11:47] VITALS: BP 108/63; PULSE 102; RESP 8; TEMP 37; O2SAT 100
[2025-02-07 11:52] VITALS: BP 108/63; PULSE 102; RESP 8; TEMP 37; O2SAT 100
== END 2025-02-07 11:52 | disposition home or self-care (01) ==
LOC: HO.ED 11:51
PROVIDERS: Physician Assistant Medical; Emergency Provider Emergency Medicine
DX: U07.1 COVID-19 (principal); R51.9 Headache, unspecified; R09.81 Nasal congestion
CPT/HCPCS: 87637; 99282; 99283